=== PATIENT | female | born 1995 | race Caucasian/White ===

== ENCOUNTER 2016-08-14 13:41 | Emergency (ER) | payer SELFPAY ==
[~2016-08-14] VITALS: Ht 160 cm; Wt 79.5 kg
[2016-08-14 13:42] VITALS: BP 126/79; PULSE 86; RESP 16; TEMP 97.7; O2SAT 99
--- NOTE | 2016-08-14 14:33 | PD ---
HPI Chief Complaint: GI Complaint Time Seen by Provider: 14:27 Travel History International Travel<30 days: No Contact w/Intl Traveler<30days: No Traveled to known affect area: No History of Present Illness HPI 20-year-old female that presents to the ED for evaluation of headaches as well as urinary like symptoms. Patient does have a chronic history of migraine headaches and she was a child and she states that she should takes excelling with good relief. Per patient she got concerned because she's been having more headaches more frequently since Tuesday and she also noted that she started having some flank pain past 2 days on her right side. Per patient she does have some polyuria and dysuria and she has had kidney infections in the past that she is concerned that she might have this. Orders to the headache she states that the headaches are more frequent and not really more severe. Per patient she has vomiting and photophobia with them but she has no headache at this time. She states that they're not the worst headaches of her life. No thunderclap-like pain. Denies any chest pain or shortness of breath. Denies possibility of . Denies taking any medications other than Excedrin for the headache. She is mainly concerned about the urinary symptoms as well as the headaches. Allergy to penicillin. Currently her pain is 4 out of 10 on the right flank. [facility] Past Medical History Medical History: Denies Significant Hx Hx Anticoagulant Therapy: No Cardiovascular Problems: No Chemotherapy: No Cerebrovascular Accident: No Diabetes: No Respiratory: No Tetanus Vaccination: < 5 Years ?: Not LMP: 08/06/16 Past Surgical History Hysterectomy: No Social History Alcohol Use: Yes Tobacco Use: Yes Allergies-Medications (Allergen,Severity, Reaction): Coded Allergies: Penicillin (Verified Allergy, Severe, 08/14/16) Review of Systems Except as stated in HPI: all other systems reviewed are Neg Physical Exam Narrative GENERAL: SKIN: Warm and dry. HEAD: Atraumatic. Normocephalic. EYES: Pupils equal and round. No scleral icterus. No injection or drainage. ENT: No nasal bleeding or discharge. Mucous membranes pink and moist. Tongue is midline. No uvula deviation. NECK: Trachea midline. No JVD. CARDIOVASCULAR: Regular rate and rhythm. No murmurs, S3, S4. RESPIRATORY: No accessory muscle use. Clear to auscultation. Breath sounds equal bilaterally. GASTROINTESTINAL: Abdomen soft, non-tender, nondistended. Hepatic and splenic margins not palpable. MUSCULOSKELETAL: Extremities without clubbing, cyanosis, or edema. No obvious deformities. Full range of motion of the upper and lower extremities bilaterally. No CVA tenderness noted. NEUROLOGICAL: Awake and alert. No obvious cranial nerve deficits. Motor grossly within normal limits. Five out of 5 muscle strength in the arms and legs. Normal speech. PSYCHIATRIC: Appropriate mood and affect; insight and judgment normal. Data Data Last Documented VS Vital Signs Date Time Temp Pulse Resp B/P Pulse Ox O2 Delivery O2 Flow Rate FiO2 08/14/16 13:42 97.7 86 16 126/79 99 Room Air Orders Complete Blood Count With Diff (08/14/16 14:01) Basic Metabolic Panel (Bmp) (08/14/16 14:01) Urinalysis - C+S If Indicated (08/14/16 14:01) Ed Urine Pregnancytest Poc (08/14/16 14:01) Labs Laboratory Tests Test 08/14/16 14:15 White Blood Count 6.0 TH/MM3 Red Blood Count 4.36 MIL/MM3 Hemoglobin 13.3 GM/DL Hematocrit 39.1 % Mean Corpuscular Volume 89.8 FL Mean Corpuscular Hemoglobin 30.6 PG Mean Corpuscular Hemoglobin 34.0 % Concent Red Cell Distribution Width 13.0 % Platelet Count 295 TH/MM3 Mean Platelet Volume 9.1 FL Neutrophils (%) (Auto) 62.3 % Lymphocytes (%) (Auto) 27.4 % Monocytes (%) (Auto) 7.7 % Eosinophils (%) (Auto) 1.8 % Basophils (%) (Auto) 0.8 % Neutrophils # (Auto) 3.7 TH/MM3 Lymphocytes # (Auto) 1.6 TH/MM3 Monocytes # (Auto) 0.5 TH/MM3 Eosinophils # (Auto) 0.1 TH/MM3 Basophils # (Auto) 0.0 TH/MM3 CBC Comment DIFF FINAL Differential Comment Urine Color YELLOW Urine Turbidity HAZY Urine pH 6.0 Urine Specific [place] 1.019 Urine Protein NEG mg/dL Urine Glucose (UA) NEG mg/dL Urine Ketones NEG mg/dL Urine Occult Blood NEG Urine Nitrite NEG Urine Bilirubin NEG Urine Urobilinogen LESS THAN 2.0 MG/DL Urine Leukocyte Esterase SMALL Urine WBC 1 /hpf Urine Squamous Epithelial 9 /hpf Cells Urine Bacteria OCC /hpf Urine Mucus FEW /lpf Microscopic Urinalysis Comment CULT NOT INDICATED MDM Medical Decision Making Medical Screen Exam Complete: Yes Emergency Medical Condition: Yes Medical Record Reviewed: Yes Interpretation(s) CBC & BMP Diagram 08/14/16 14:15 UA shows some bacteria, leukerase esterase, WBcs Differential Diagnosis Pyelonephritis versus cystitis versus urethritis versus tension headache versus migraine headache Narrative Course 20-year-old female that presents to the ED for evaluation of migraine headaches with possible kidney infection. Patient was properly examined and was found to have signs and symptoms very consistent what appears to be migraine headaches that appear to be worsening secondary to likely urinary tract infection. She is neurovascularly intact and she has no headache at this time. Recommendations times for labs and urine. Patient is agreeable with this. Labs and imaging showed what appears to be possible UTI. Labs otherwise unremarkable. Patient will be treated for this with Bactrim as well as Zofran. Patient was told to drink plenty of fluids. Continue taking Excedrin for her headache as needed. Close follow with PCP. See ED if worsening symptoms. Diagnosis Primary Impression: Cystitis Additional Impression: Migraine headache Qualified Code: G43.101 - Migraine with aura and with status migrainosus, not intractable Patient Instructions: General Instructions Additional Instructions: Take medications as prescribed. Continue taking Excedrin for migraines as needed. Once infection gets better symptoms should improve. Drink plenty of fluids. Anything worsens you are welcome to come back. See ED for worsening symptoms. Med/Other Pt SpecificInfo: Prescription(s) given Scripts Ondansetron (Zofran)4 Mg Tab4 Mg PO Q6HR PRN (NAUSEA OR VOMITING) #20 TAB Prov:Gisele Abreu DO 08/14/16 Sulfamethoxazole-Trimethoprim (Bactrim DS)800-160 Mg Tab1 Tab PO BID 5 Days Prov:iGsele Abreu DO 08/14/16 Disposition: 01 DISCHARGE HOME Condition: Stable Fernando Lopez Aug 14, 2016 14:33
[2016-08-14 14:36] LABS: AUTOMATED NEUTROPHIL # 3.7 TH/MM3 (1.8-7.7); BASOPHIL % 0.8 % (0.0-2.0); EOSINOPHIL # 0.1 TH/MM3 (0-0.4); EOSINOPHIL % 1.8 % (0.0-4.0); HEMATOCRIT 39.1 % (35.0-46.0); HEMO FLAGS DIFF FINAL; LYMPH % 27.4 % (9.0-44.0); LYMPHOCYTE # 1.6 TH/MM3 (1.0-4.8); MEAN CELL VOLUME 89.8 FL (80.0-100.0); MEAN CORPUSCULAR HEMOGLOBIN 30.6 PG (27.0-34.0); MONO % 7.7 % (0.0-8.0); NEUT % 62.3 % (16.0-70.0); PLATELET COUNT 295 TH/MM3 (150-450); RED BLOOD COUNT 4.36 MIL/MM3 (4.00-5.30)
[2016-08-14 14:40] LABS: BACTERIA, URINE OCC /hpf; BLOOD, URINE NEG (NEG); COMMENT (UR) CULT NOT INDICATED; CULTURE IF INDICATED CULT NOT INDICATED; GLUCOSE,URINE NEG (NEG); KETONE, URINE NEG (NEG); MUCUS URINE FEW /lpf (OCC); NITRITE,URINE NEG (NEG); SQUAMOUS EPITHELIAL CELL URINE 9 /hpf (0-5); URINE COLOR YELLOW (YELLW/STRAW)
[2016-08-14] MEDS ORDERED: ZOFR4TAB PO (14:48)
[2016-08-14] MEDS ORDERED: BACT800T5 PO (14:48)
[2016-08-14 14:52] LABS: BICARBONATE 26.1 MEQ/L (21.0-32.0); POTASSIUM 3.9 MEQ/L (3.5-5.1)
[2016-08-14] MEDS ORDERED: ACETAMINOPHEN 325 MG TAB PO ONE (15:00)
== END 2016-08-14 15:52 | disposition home or self-care (01) ==
LOC: NEPC 13:41
DX: N30.90 Cystitis, unspecified without hematuria (principal); G43.101 Migraine with aura, not intractable, with status migrainosus
CPT/HCPCS: 80048; 81001; 84703; 85025; 99283

== ENCOUNTER 2016-10-28 22:49 | Emergency (ER) | payer SELFPAY ==
[~2016-10-28 22:49] MED LIST: BACT800T5 PO; ZOFR4TAB PO
[2016-10-28 22:50] VITALS: BP 122/73; PULSE 86; RESP 16; TEMP 98.1; O2SAT 100
[2016-10-28 23:55] VITALS: BP 109/65; PULSE 87; RESP 18; TEMP 98.1; O2SAT 98
[2016-10-29] MEDS ORDERED: SODIUM CHLOR 0.9% 1000 ML INJ 1,000 ML IV SCH (00:01)
[2016-10-29] MEDS ORDERED: SODIUM CHLOR 0.9% 1000 ML INJ 1,000 ML IV ONE (00:15)
[2016-10-29] MEDS ORDERED: SODIUM CHLORIDE 0.9% FLUSH 10 ML FLUSH IV FLUSH PRN (00:15)
[2016-10-29] MEDS ORDERED: DICYCLOMINE HCL 10 MG CAP PO ONE (00:15)
[2016-10-29] MEDS ORDERED: FAMOTIDINE 20 MG/2 ML VIAL IV PUSH ONE (00:15)
[2016-10-29] MEDS ORDERED: ONDANSETRON HCL 4 MG/2 ML VIAL IVP ONE (00:15)
[2016-10-29 00:19] LABS: AUTOMATED NEUTROPHIL # 5.4 TH/MM3 (1.8-7.7); BASOPHIL # 0.1 TH/MM3 (0-0.2); BASOPHIL % 0.7 % (0.0-2.0); EOSINOPHIL # 0.1 TH/MM3 (0-0.4); EOSINOPHIL % 1.5 % (0.0-4.0); HEMATOCRIT 37.3 % (35.0-46.0); HEMO FLAGS DIFF FINAL; LYMPH % 31.1 % (9.0-44.0); LYMPHOCYTE # 2.8 TH/MM3 (1.0-4.8); MEAN CELL VOLUME 89.6 FL (80.0-100.0); MEAN CORPUSCULAR HEMOGLOBIN 30.1 PG (27.0-34.0); MEAN CORPUSCULAR HGB CONC 33.6 % (32.0-36.0); MONO % 7.1 % (0.0-8.0); NEUT % 59.6 % (16.0-70.0); PLATELET COUNT 272 TH/MM3 (150-450); RED BLOOD COUNT 4.16 MIL/MM3 (4.00-5.30); RED CELL DISTRIBUTION WIDTH 12.8 % (11.6-17.2)
[2016-10-29 00:29] LABS: BACTERIA, URINE RARE /hpf; BLOOD, URINE NEG (NEG); COMMENT (UR) CULT NOT INDICATED; CULTURE IF INDICATED CULT NOT INDICATED; GLUCOSE,URINE NEG (NEG); HYALINE CAST, URINE 1 /lpf (RARE); KETONE, URINE NEG (NEG); MUCUS URINE MOD /lpf (OCC); NITRITE,URINE NEG (NEG); PH, URINE 5.5 (5.0-8.5); SQUAMOUS EPITHELIAL CELL URINE 2 /hpf (0-5); URINE COLOR YELLOW (YELLW/STRAW)
[2016-10-29 00:37] LABS: ALT (GPT) 18 U/L (10-53); ANION GAP 7 MEQ/L (5-15); AST (GOT) 9 U/L (15-37); BICARBONATE 28.8 MEQ/L (21.0-32.0); BLOOD UREA NITROGEN 16 MG/DL (7-18); CHLORIDE 105 MEQ/L (98-107); GLOMERULAR FILTRATION RATE 92 ML/MIN (>89); POTASSIUM 3.5 MEQ/L (3.5-5.1); SODIUM (NA) 141 MEQ/L (136-145)
[2016-10-29 00:39] LABS: ALKALINE PHOSPHATASE 65 U/L (45-117); TOTAL BILIRUBIN ADULT 0.2 MG/DL (0.2-1.0)
[2016-10-29] MEDS ORDERED: ZOFR4TAB3 SL (00:41)
[2016-10-29] MEDS ORDERED: BENT20TA PO (00:41)
--- NOTE | 2016-10-29 00:42 | PD ---
HPI Chief Complaint: GI Complaint Time Seen by Provider: 23:55 Travel History International Travel<30 days: No Contact w/Intl Traveler<30days: No Traveled to known affect area: No History of Present Illness HPI Patient is a 21 year old female who presents to ER with c/o of n/v/d. Patient reports that 2 days ago, she ate seafood from a grocery store. Reports that right after eating the food, she began to feel nauseous. Patient reports that over the next day, she has been feeling nauseous, has been vomiting, and has been having diarrhea. She reports that she is still symptomatic today, reports "I think I have food poisoning." Patient reports that she is not having any abdominal pain, reports that she feels dehydrated. Reports cramping feeling from vomiting so much. Patient also reports that she is having dysuria, mild right-sided kidney pain. Patient concerned that she may have a UTI. Patient with no fevers or chills or other complaints at this time. PFSH Past Medical History Hx Anticoagulant Therapy: No Cardiovascular Problems: No Chemotherapy: No Cerebrovascular Accident: No Diabetes: No Respiratory: No Tetanus Vaccination: Unknown Influenza Vaccination: No ?: Not LMP: 10/16/16 : 1 Para: 1 Past Surgical History Hysterectomy: No Other Surgery: Yes (rhinoplasty ) Social History Alcohol Use: Yes Tobacco Use: Yes Substance Use: No Allergies-Medications (Allergen,Severity, Reaction): Coded Allergies: Penicillin (Verified Allergy, Severe, 10/28/16) Reported Meds & Prescriptions Reported Meds & Active Scripts Active Bentyl (Dicyclomine HCl) 20 Mg Tab 20 Mg PO TID Zofran Odt (Ondansetron Odt) 4 Mg Tab 4 Mg SL Q6HR PRN Review of Systems Gastrointestinal: Positive: Nausea, Vomiting, Diarrhea, No: Abdominal Pain Genitourinary: Positive: Dysuria, No: Urgency, Frequency Physical Exam Narrative GENERAL: No acute distress, nontoxic SKIN: Focused skin assessment warm/dry. HEAD: Atraumatic. Normocephalic. EYES: Pupils equal and round. No scleral icterus. No injection or drainage. ENT: No nasal bleeding or discharge. Mucous membranes pink and moist. NECK: Trachea midline. No JVD. CARDIOVASCULAR: Regular rate and rhythm. No murmur appreciated. RESPIRATORY: No accessory muscle use. Clear to auscultation. Breath sounds equal bilaterally. GASTROINTESTINAL: Abdomen soft, non-tender, nondistended. No flank pain on exam MUSCULOSKELETAL: No obvious deformities. No clubbing. No cyanosis. No edema. NEUROLOGICAL: Awake and alert.. Motor grossly within normal limits. Normal speech. PSYCHIATRIC: Appropriate mood and affect; insight and judgment normal. Data Data Last Documented VS Vital Signs Date Time Temp Pulse Resp B/P Pulse Ox O2 Delivery O2 Flow Rate FiO2 10/28/16 23:55 98.1 87 18 109/65 98 Room Air Orders Complete Blood Count With Diff (10/29/16 00:01) Comprehensive Metabolic Panel (10/29/16 00:01) Urinalysis - C+S If Indicated (10/29/16 00:01) Iv Access Insert/Monitor (10/29/16 00:01) Ondansetron Inj (Zofran Inj) (10/29/16 00:15) Sodium Chlor 0.9% 1000 Ml Inj (Ns 1000 M (10/29/16 00:01) Sodium Chloride 0.9% Flush (Ns Flush) (10/29/16 00:15) Famotidine Inj (Pepcid Inj) (10/29/16 00:15) Dicyclomine (Bentyl) (10/29/16 00:15) Ed Urine Pregnancytest Poc (10/29/16 00:01) Sodium Chlor 0.9% 1000 Ml Inj (Ns 1000 M (10/29/16 00:15) Labs Laboratory Tests Test 10/29/16 00:05 White Blood Count 9.0 TH/MM3 Red Blood Count 4.16 MIL/MM3 Hemoglobin 12.5 GM/DL Hematocrit 37.3 % Mean Corpuscular Volume 89.6 FL Mean Corpuscular Hemoglobin 30.1 PG Mean Corpuscular Hemoglobin 33.6 % Concent Red Cell Distribution Width 12.8 % Platelet Count 272 TH/MM3 Mean Platelet Volume 8.7 FL Neutrophils (%) (Auto) 59.6 % Lymphocytes (%) (Auto) 31.1 % Monocytes (%) (Auto) 7.1 % Eosinophils (%) (Auto) 1.5 % Basophils (%) (Auto) 0.7 % Neutrophils # (Auto) 5.4 TH/MM3 Lymphocytes # (Auto) 2.8 TH/MM3 Monocytes # (Auto) 0.6 TH/MM3 Eosinophils # (Auto) 0.1 TH/MM3 Basophils # (Auto) 0.1 TH/MM3 CBC Comment DIFF FINAL Differential Comment Urine Color YELLOW Urine Turbidity CLEAR Urine pH 5.5 Urine Specific [place] 1.031 Urine Protein TRACE mg/dL Urine Glucose (UA) NEG mg/dL Urine Ketones NEG mg/dL Urine Occult Blood NEG Urine Nitrite NEG Urine Bilirubin NEG Urine Urobilinogen LESS THAN 2.0 MG/DL Urine Leukocyte Esterase SMALL Urine RBC 1 /hpf Urine WBC 1 /hpf Urine Squamous Epithelial 2 /hpf Cells Urine Bacteria RARE /hpf Urine Hyaline Casts 1 /lpf Urine Mucus MOD /lpf Microscopic Urinalysis Comment CULT NOT INDICATED Sodium Level 141 MEQ/L Potassium Level 3.5 MEQ/L Chloride Level 105 MEQ/L Carbon Dioxide Level 28.8 MEQ/L Anion Gap 7 MEQ/L Blood Urea Nitrogen 16 MG/DL Creatinine 0.79 MG/DL Estimat Glomerular Filtration 92 ML/MIN Rate Random Glucose 66 MG/DL Calcium Level 9.0 MG/DL Total Bilirubin 0.2 MG/DL Aspartate Amino Transf 9 U/L (AST/SGOT) Alanine Aminotransferase 18 U/L (ALT/SGPT) Alkaline Phosphatase 65 U/L Total Protein 7.3 GM/DL Albumin 4.0 GM/DL MDM Medical Decision Making Medical Screen Exam Complete: Yes Emergency Medical Condition: Yes Interpretation(s) Vital Signs Date Time Temp Pulse Resp B/P Pulse Ox O2 Delivery O2 Flow Rate FiO2 10/28/16 23:55 98.1 87 18 109/65 98 Room Air 10/28/16 22:50 98.1 86 16 122/73 100 Room Air Differential Diagnosis Gastroenteritis, cystitis, acute cholecystitis, electrolyte abnormality Narrative Course Patient is a 21-year-old female who presents to emergency room with complaints of nausea, vomiting, diarrhea for the past 2 days. Patient reports that she ate seafood from a grocery store 2 days ago and felt nauseous after eating this. Reports that the seafood smelt "kind of funny but I ate it anyways because I was on my lunch break." Patient reports decreased by mouth intake over the past 2 days, no abdominal pain at this time. Patient reports increased dehydration. Patient nontoxic appearing on exam. Abdomen is soft, nontender, nondistended, no peritoneal signs. Plan to obtain lab work, will give IV fluids as well as Bentyl and Zofran. CBC & BMP Diagram 10/29/16 00:05 Patient reevaluated, patient reports that she is feeling much better at this time. Abdomen is soft, nontender, nondistended, no peritoneal signs. Patient will follow-up with her primary care doctor and will return to emergency room as needed. Diagnosis Primary Impression: Nausea vomiting and diarrhea Patient Instructions: General Instructions Additional Instructions: Please return to emergency room if symptoms progress or worsen Please drink plenty of fluids Return to the emergency room as needed Med/Other Pt SpecificInfo: Prescription(s) given Scripts Dicyclomine (Bentyl)20 Mg Tab20 Mg PO TID #30 TAB Ref 0 Prov:Gisele Abreu DO 10/29/16 Ondansetron Odt (Zofran Odt)4 Mg Tab4 Mg SL Q6HR PRN (Nausea/Vomiting) #30 TAB Ref 0 Prov:Gisele Abreu DO 10/29/16 Disposition: 01 DISCHARGE HOME Condition: Stable Gisele Abreu DO Oct 29, 2016 00:42
== END 2016-10-29 01:39 | disposition home or self-care (01) ==
LOC: NEPC 22:49
DX: R11.2 Nausea with vomiting, unspecified (principal); R19.7 Diarrhea, unspecified; R10.9 Unspecified abdominal pain; R30.0 Dysuria; Z72.0 Tobacco use
CPT/HCPCS: 80053; 81001; 84703; 85025; 96361; 96374; 96375; 99284; J2405; J7030

== ENCOUNTER 2017-01-18 01:22 | Emergency (ER) | payer SELFPAY ==
[~2017-01-18] VITALS: Ht 160 cm; Wt 80.0 kg
[~2017-01-18 01:22] MED LIST changes: -BACT800T5 PO; +BENT20TA PO; -ZOFR4TAB PO; +ZOFR4TAB3 SL
[2017-01-18 01:23] VITALS: BP 123/72; PULSE 56; RESP 16; TEMP 97.8; O2SAT 100
[2017-01-18 01:38] VITALS: BP 113/62; PULSE 75; RESP 16; TEMP 98; O2SAT 98
[2017-01-18] MEDS ORDERED: MORPHINE SULFATE 4 MG/ML INJ IV PUSH ONE (02:00)
[2017-01-18] MEDS ORDERED: SODIUM CHLORIDE 0.9% FLUSH 10 ML FLUSH IV FLUSH PRN (02:00)
[2017-01-18] MEDS ORDERED: ONDANSETRON HCL 4 MG/2 ML VIAL IVP ONE (02:00)
--- NOTE | 2017-01-18 02:04 | PD ---
HPI Chief Complaint: Flank/Kidney Pain Time Seen by Provider: 01:47 Travel History International Travel<30 days: No Contact w/Intl Traveler<30days: No Traveled to known affect area: No History of Present Illness HPI 21-year-old female here for evaluation of bilateral flank pain, right greater than left, radiating to her lower abdomen. Symptoms started earlier today and have progressively become worse. She rates the pain as 9 out of 10, constant, worse with movement and palpation, sharp. She denies fevers or chills. She has had some nausea and a few episodes of vomiting. She is also having some dysuria and increased urinary frequency. She reports history of kidney infections and states this feels similar. Her LMP was 2 weeks ago. No history of abdominal surgeries. No IVDU. She is sexually active with one partner and has been in a monogamous relationship with him for the last 4 years. PFSH Past Medical History Hx Anticoagulant Therapy: No Cardiovascular Problems: No Chemotherapy: No Cerebrovascular Accident: No Diabetes: No Respiratory: No ?: Not LMP: 01/04/2017 : 1 Para: 1 Past Surgical History Hysterectomy: No Other Surgery: Yes (rhinoplasty ) Social History Alcohol Use: Yes (SOCIALLY) Tobacco Use: Yes (5-6 CIGARETTES PER DAY) Substance Use: No Allergies-Medications (Allergen,Severity, Reaction): Coded Allergies: Penicillin (Verified Allergy, Severe, 01/18/17) Reported Meds & Prescriptions Reported Meds & Active Scripts Active Review of Systems Except as stated in HPI: all other systems reviewed are Neg Physical Exam Narrative GENERAL: Well-developed, well-nourished, no apparent distress. SKIN: Focused skin assessment warm/dry. No rash. HEAD: Atraumatic. Normocephalic. EYES: Pupils equal and round. No scleral icterus. No injection or drainage. ENT: Mucous membranes pink and moist. NECK: Trachea midline. No JVD. CARDIOVASCULAR: Regular rate and rhythm. No murmur appreciated. RESPIRATORY: No accessory muscle use. Clear to auscultation. Breath sounds equal bilaterally. GASTROINTESTINAL: Abdomen soft, non-tender, nondistended. MUSCULOSKELETAL: No obvious deformities. No clubbing. No cyanosis. No edema. Bilateral CVA tenderness, right greater than left. No midline vertebral step- off or tenderness. NEUROLOGICAL: Awake and alert. No obvious cranial nerve deficits. Motor grossly within normal limits. Normal speech. PSYCHIATRIC: Appropriate mood and affect; insight and judgment normal. Data Data Last Documented VS Vital Signs Date Time Temp Pulse Resp B/P Pulse Ox O2 Delivery O2 Flow Rate FiO2 01/18/17 02:51 98 01/18/17 01:38 98.0 75 16 113/62 Room Air Orders Beta Hcg (Quant/Titer) (01/18/17 01:47) Complete Blood Count With Diff (01/18/17 01:47) Comprehensive Metabolic Panel (01/18/17 01:47) Lipase (01/18/17 01:47) Prothrombin Time / Inr (Pt) (01/18/17 01:47) Act Partial Throm Time (Ptt) (01/18/17 01:47) Urinalysis - C+S If Indicated (01/18/17 01:47) Ct Abd/Pel W Iv Contrast(Rout) (01/18/17 01:47) Iv Access Insert/Monitor (01/18/17 01:47) Ecg Monitoring (01/18/17 01:47) Oximetry (01/18/17 01:47) Morphine Inj (Morphine Inj) (01/18/17 02:00) Ondansetron Inj (Zofran Inj) (01/18/17 02:00) Sodium Chloride 0.9% Flush (Ns Flush) (01/18/17 02:00) Urine Culture (01/18/17 03:30) Ceftriaxone Inj (Rocephin Inj) (01/18/17 04:15) Iohexol 350 Inj (Omnipaque 350 Inj) (01/18/17 04:36) Ketorolac Inj (Toradol Inj) (01/18/17 05:15) Labs Laboratory Tests Test 01/18/17 01/18/17 01/18/17 02:30 02:40 03:30 White Blood Count 8.9 TH/MM3 Red Blood Count 4.20 MIL/MM3 Hemoglobin 13.0 GM/DL Hematocrit 37.6 % Mean Corpuscular Volume 89.4 FL Mean Corpuscular Hemoglobin 30.8 PG Mean Corpuscular Hemoglobin 34.5 % Concent Red Cell Distribution Width 12.9 % Platelet Count 283 TH/MM3 Mean Platelet Volume 9.7 FL Neutrophils (%) (Auto) 57.9 % Lymphocytes (%) (Auto) 34.7 % Monocytes (%) (Auto) 5.4 % Eosinophils (%) (Auto) 1.5 % Basophils (%) (Auto) 0.5 % Neutrophils # (Auto) 5.2 TH/MM3 Lymphocytes # (Auto) 3.1 TH/MM3 Monocytes # (Auto) 0.5 TH/MM3 Eosinophils # (Auto) 0.1 TH/MM3 Basophils # (Auto) 0.0 TH/MM3 CBC Comment DIFF FINAL Differential Comment Sodium Level 140 MEQ/L Potassium Level 3.5 MEQ/L Chloride Level 106 MEQ/L Carbon Dioxide Level 27.2 MEQ/L Anion Gap 7 MEQ/L Blood Urea Nitrogen 15 MG/DL Creatinine 0.88 MG/DL Estimat Glomerular Filtration 81 ML/MIN Rate Random Glucose 90 MG/DL Calcium Level 9.2 MG/DL Total Bilirubin 0.2 MG/DL Aspartate Amino Transf 11 U/L (AST/SGOT) Alanine Aminotransferase 17 U/L (ALT/SGPT) Alkaline Phosphatase 72 U/L Total Protein 7.4 GM/DL Albumin 4.0 GM/DL Lipase 83 U/L Human Chorionic Gonadotropin, LESS THAN 1 Quant MIU/ML Prothrombin Time 10.9 SEC Prothromb Time International 1.0 RATIO Ratio Activated Partial 30.7 SEC Thromboplast Time Urine Color YELLOW Urine Turbidity CLEAR Urine pH 6.0 Urine Specific [place] 1.016 Urine Protein NEG mg/dL Urine Glucose (UA) NEG mg/dL Urine Ketones NEG mg/dL Urine Occult Blood NEG Urine Nitrite NEG Urine Bilirubin NEG Urine Urobilinogen LESS THAN 2.0 MG/DL Urine Leukocyte Esterase NEG Urine RBC LESS THAN 1 /hpf Urine WBC 3 /hpf Urine Squamous Epithelial 2 /hpf Cells Urine Bacteria MANY /hpf Urine Hyaline Casts 1 /lpf Urine Mucus FEW /lpf Microscopic Urinalysis Comment CULTURE INDICATED MDM Medical Decision Making Medical Screen Exam Complete: Yes Emergency Medical Condition: Yes Differential Diagnosis Pyelonephritis, nephrolithiasis, ureterolithiasis, UTI, musculoskeletal pain, Narrative Course Vital signs show heart rate 75, blood pressure 113/62, pulse ox 98% on room air , oral temp of 98F. CBC is unremarkable. CMP is unremarkable. Lipase is 83. Beta hCG is negative. UA shows many bacteria, few mucus. CT abdomen pelvis: CONCLUSION: 1. No acute inflammatory process. 2. Heterogeneous uterus with trace free fluid likely physiologic. 3. Large hepatic low density, likely benign. Nonemergent abdominal sonogram recommended for further characterization. Patient was made aware of all findings. She is resting comfortably. She was given a dose of IV Rocephin for her UA. Abdominal exam is benign. She was given a copy of her CT abdomen pelvis report and I stressed the importance of follow-up with a primary care physician as an outpatient. Patient is stable for discharge home with outpatient follow-up. She was informed on when to return to the emergency department. She verbalizes understanding and agreement with plan. Diagnosis Primary Impression: UTI (urinary tract infection) Qualified Code: N30.00 - Acute cystitis without hematuria Additional Impressions: Abdominal pain Qualified Code: R10.30 - Lower abdominal pain Liver lesion Referrals: [facility] 3 days Additional Instructions: Follow-up with a primary care physician this week. Return to the emergency department for worsening symptoms or any other concerns. Scripts Sulfamethoxazole-Trimethoprim (Bactrim DS)800-160 Mg Tab1 Tab PO BID #14 TAB Ref 0 Prov:Elieser Ceja MD 01/18/17 Disposition: 01 DISCHARGE HOME Condition: Stable Elieser Ceja MD Jan 18, 2017 02:04
[2017-01-18 02:51] VITALS: O2SAT 98
[2017-01-18 02:58] LABS: AUTOMATED NEUTROPHIL # 5.2 TH/MM3 (1.8-7.7); BASOPHIL % 0.5 % (0.0-2.0); EOSINOPHIL # 0.1 TH/MM3 (0-0.4); EOSINOPHIL % 1.5 % (0.0-4.0); HEMATOCRIT 37.6 % (35.0-46.0); HEMO FLAGS DIFF FINAL; LYMPH % 34.7 % (9.0-44.0); LYMPHOCYTE # 3.1 TH/MM3 (1.0-4.8); MEAN CELL VOLUME 89.4 FL (80.0-100.0); MEAN CORPUSCULAR HEMOGLOBIN 30.8 PG (27.0-34.0); MEAN CORPUSCULAR HGB CONC 34.5 % (32.0-36.0); MONO % 5.4 % (0.0-8.0); NEUT % 57.9 % (16.0-70.0); PLATELET COUNT 283 TH/MM3 (150-450); RED CELL DISTRIBUTION WIDTH 12.9 % (11.6-17.2); WHITE BLOOD COUNT 8.9 TH/MM3 (4.0-11.0)
[2017-01-18 03:06] LABS: APTT (PATIENT) 30.7 SEC (24.3-30.1); PROTHROMBIN TIME - PATIENT 10.9 SEC (9.8-11.6)
[2017-01-18 03:49] LABS: BACTERIA, URINE MANY /hpf; BLOOD, URINE NEG (NEG); GLUCOSE,URINE NEG (NEG); HYALINE CAST, URINE 1 /lpf (RARE); KETONE, URINE NEG (NEG); MUCUS URINE FEW /lpf (OCC); NITRITE,URINE NEG (NEG); SQUAMOUS EPITHELIAL CELL URINE 2 /hpf (0-5); URINE COLOR YELLOW (YELLW/STRAW)
[2017-01-18 03:50] LABS: COMMENT (UR) CULTURE INDICATED; CULTURE IF INDICATED CULTURE INDICATED
[2017-01-18 04:15] LABS: ALKALINE PHOSPHATASE 72 U/L (45-117); ALT (GPT) 17 U/L (10-53); ANION GAP 7 MEQ/L (5-15); AST (GOT) 11 U/L (15-37); BETA HCG QUANT LESS THAN 1 MIU/ML (0-5); BICARBONATE 27.2 MEQ/L (21.0-32.0); BLOOD UREA NITROGEN 15 MG/DL (7-18); CHLORIDE 106 MEQ/L (98-107); GLOMERULAR FILTRATION RATE 81 ML/MIN (>89); POTASSIUM 3.5 MEQ/L (3.5-5.1); SODIUM (NA) 140 MEQ/L (136-145); TOTAL BILIRUBIN ADULT 0.2 MG/DL (0.2-1.0)
[2017-01-18] MEDS ORDERED: cefTRIAXone INJ 1,000 MG in SODIUM CHLORIDE 0.9% INJ 100 ML IV ONE (04:15)
[2017-01-18] MEDS ORDERED: IOHEXOL 350 MG/ML 10 ML VIAL (for RAD DIAG) IV ONE (04:36)
--- NOTE | 2017-01-18 04:55 | RADRPT ---
EXAM DATE/TIME: 01/18/2017 04:33 [facility] COMPARISON: No previous studies available for comparison. INDICATIONS : Bilateral flank pain. IV CONTRAST: 95 cc Omnipaque 350 (iohexol) IV ORAL CONTRAST: No oral contrast ingested. RADIATION DOSE: 9.05 CTDIvol (mGy) MEDICAL HISTORY : None SURGICAL HISTORY : None. ENCOUNTER: Initial ACUITY: 1 day PAIN SCALE: 6/10 LOCATION: Bilateral flank TECHNIQUE: Volumetric scanning of the abdomen and pelvis was performed. Using automated exposure control and ad justment of the mA and/or kV according to patient size, radiation dose was kept as low as reasonably achievable to obtain optimal diagnostic quality images. DICOM format image data is available electro nically for review and comparison. FINDINGS: LOWER LUNGS: The visualized lower lungs are clear. LIVER: Homogeneous density without dilation of the biliary tree. Low-density in the left lobe measures 4.9 c m. No calcified gallstones. SPLEEN: Normal size without lesion. PANCREAS: Within normal limits. KIDNEYS: Normal in size and shape. There is no mass, stone or hydronephrosis. ADRENAL GLANDS: Within normal limits. VASCULAR: There is no aortic aneurysm. BOWEL/MESENTERY: The stomach, small bowel, and colon demonstrate no acute abnormality. There is no free intraperitone al air or fluid. Appendix normal. ABDOMINAL WALL: Within normal limits. RETROPERITONEUM: There is no lymphadenopathy. BLADDER: No wall thickening or mass. REPRODUCTIVE: Heterogeneous uterus with trace free fluid. INGUINAL: There is no lymphadenopathy or hernia. MUSCULOSKELETAL: Within normal limits for patient age. CONCLUSION: 1. No acute inflammatory process. 2. Heterogeneous uterus with trace free fluid likely physiologic. 3. Large hepatic low density, likely benign. Nonemergent abdominal sonogram recommended for further c haracterization. Carlos Okeefe MD on January 18, 2017 at 4:48 Board Certified Radiologist. This report was verified electronically.
[2017-01-18] MEDS ORDERED: BACT800T5 PO (05:06)
[2017-01-18] MEDS ORDERED: KETOROLAC TROMETHAMINE 30 MG/ML (IVP) VIAL IV PUSH ONE (05:15)
== END 2017-01-18 05:18 | disposition home or self-care (01) ==
LOC: NEPE 01:22
DX: R10.30 Lower abdominal pain, unspecified (principal); N30.00 Acute cystitis without hematuria; B96.29 Other Escherichia coli [E. coli] as the cause of diseases classified elsewhere
CPT/HCPCS: 74177; 80053; 81001; 83690; 84702; 85025; 85610; 85730; 87086; 96365; 96375; 99285; J0696; J1885; J2270; J2405; Q9967